=== PATIENT | female | born 1945 | race Caucasian/White ===

== ENCOUNTER 2020-06-05 09:39 | Outpatient (CLI) | payer MEDICARE, SELFPAY ==
--- NOTE | 2020-06-05 09:48 | MM_ITS ---
WS: [id number] Bilateral screening digital mammogram, 06/05/2020 Clinical Data: SCREENING Comparison: 06/04/2019, 09/01/2017, 12/14/2015, 11/28/2014, 02/18/2013, 12/30/2011, 11/02/2010, 07/20/2009, 06/29/2008, 01/26/2007. Findings: The breast parenchymal pattern shows heterogeneous density No spiculated masses or clustered calcific ations are seen. There are no secondary signs of carcinoma. MM/[id number] Impression: 1. Negative bilateral mammogram unchanged. 2. Recommend annual screening mammograms. BIRADS: 1-Negative FOLLOW UP: 1 Year Follow-up The CAD tool or die drawing checker was used.
== END 2020-06-05 09:40 | disposition home or self-care (01) ==
LOC: RADSHAW 09:45
PROVIDERS: PCP Family Medicine; Visit Provider Family Medicine
DX: Z12.31 Encounter for screening mammogram for malignant neoplasm of breast (principal)
CPT/HCPCS: 77067

== ENCOUNTER 2022-01-03 09:45 | Outpatient (CLI) | payer MEDICARE, SELFPAY ==
--- NOTE | 2022-01-03 09:52 | MM_ITS ---
WS: [id number] BILATERAL SCREENING DIGITAL MAMMOGRAM WITH CAD HISTORY: SCREENING COMPARISON: 06/05/2020, 06/04/2019, 09/01/2017 and 02/18/2013 Bilateral CC and MLO views submitted. Computer aided detection analyzed. Breast composition: The breasts are heterogeneously dense, which may obscure small masses. No suspici ous masses, microcalcifications or architectural distortion. Benign calcifications in each breast. Pa rtially obscured nodules in the anterior RIGHT breast have been present since 2012. MM/[place] [id number] IMPRESSION: BI-RADS: 2-Benign FOLLOW UP: 1 Year Follow-up
== END 2022-01-03 09:46 | disposition home or self-care (01) ==
PROVIDERS: PCP Family Medicine; Visit Provider Family Medicine
DX: Z12.31 Encounter for screening mammogram for malignant neoplasm of breast (principal)
CPT/HCPCS: 77067

== ENCOUNTER → 2022-05-29 12:54 | Outpatient (BNVA) | payer MEDICARE, SELFPAY | PROVIDERS: PCP Family Medicine; Referring Provider Dermatology; Visit Provider Podiatrist Foot & Ankle Surgery | DX: M21.611 Bunion of right foot (principal); M21.612 Bunion of left foot; M19.90 Unspecified osteoarthritis, unspecified site; M21.621 Bunionette of right foot; M21.622 Bunionette of left foot; M20.41 Other hammer toe(s) (acquired), right foot; M20.42 Other hammer toe(s) (acquired), left foot; M20.21 Hallux rigidus, right foot; M20.22 Hallux rigidus, left foot; M79.671 Pain in right foot; M79.672 Pain in left foot | CPT/HCPCS: 73630; 99204 ==

== ENCOUNTER → 2022-07-25 12:29 | Outpatient (BNVA) | payer MEDICARE, SELFPAY | PROVIDERS: PCP Family Medicine; Visit Provider Family Medicine | DX: Z00.00 Encounter for general adult medical examination without abnormal findings (principal) | CPT/HCPCS: 80053; 83036; 85025 ==

== ENCOUNTER 2022-09-02 13:53 | Outpatient (CLI) | payer MEDICARE, SELFPAY ==
--- NOTE | 2022-09-02 14:30 | XR_ITS ---
WS: [id number] SCREENING DEXA SCAN [employer] CLINICAL INFORMATION: screening COMPARISON: 2017 FINDINGS: The L1-L4 bone mineral density measures 1.187 g/cm2. This corresponds to a T score score of 0.1 and Z score of 1.9. Left femoral neck bone mineral density measures 0.841 g/cm2. This corresponds to a T score of -1.3 an d Z score of 0.5. Right femoral neck bone mineral density measures 0.821 g/cm2. This corresponds to a T score -1.5of an d Z score of 0.4. Mean femoral neck bone mineral density measures 0.831 g/cm2. This corresponds to a T score of -1.4 an d Z score of 0.4. XR/XR DEXA axial skeleton* [id number] IMPRESSION: Normal bone mineralization lumbar spine. Osteopenia femoral necks. Patient's FRAX calculated 10 year probability for major osteoporotic fracture i s 29.9 % and osteoporotic hip fracture is 19.4%. Bone mineral density lumbar spine has decreased -1.1% since 2017. Bone mineral density femoral necks has decreased -1.1% since 2017.
== END 2022-09-02 13:54 | disposition home or self-care (01) ==
LOC: RAD 13:54
PROVIDERS: PCP Family Medicine; Visit Provider Family Medicine
DX: Z13.820 Encounter for screening for osteoporosis (principal)
CPT/HCPCS: 77080

== ENCOUNTER → 2022-10-29 14:17 | Outpatient (BNVA) | payer MEDICARE, SELFPAY | PROVIDERS: PCP Family Medicine; Visit Provider Podiatrist Foot & Ankle Surgery | DX: M21.611 Bunion of right foot (principal); M21.612 Bunion of left foot; M21.621 Bunionette of right foot; M21.622 Bunionette of left foot; M20.41 Other hammer toe(s) (acquired), right foot; M20.42 Other hammer toe(s) (acquired), left foot; M20.21 Hallux rigidus, right foot; M20.22 Hallux rigidus, left foot | CPT/HCPCS: 99214 ==

== ENCOUNTER 2022-11-08 05:54 | Day surgery (SDC) | payer MEDICARE, SELFPAY ==
[2022-11-07 15:40] VITALS: BMI 24.2
[2022-11-08] VITALS (7 sets, daily range): BP systolic 111–170; BP diastolic 70–103; PULSE 73–80; RESP 10–18; TEMP 36.3–36.8; O2SAT 95–97
--- NOTE | 2022-11-08 | XR_ITS ---
WS: [id number] Right foot, C-arm fluoroscopy, 11/08/2022 Clinical Data: lapis buniectomy and osteotomy, right foot Comparison: Bilateral feet, 05/29/2022 Findings: The patient has had an osteotomy of the distal right first metatarsal with an oblique screw reducing the osteotomy. There is also an osteotomy of the right first toe proximal phalanx with a medial plate and screws. There is partial resection of the medial head of the right first metatarsal. XR/XR foot RT 2V [id number] Impression: Osteotomy of the right first metatarsal and right first toe proximal phalanx al nika with bunionectomy.
--- NOTE | 2022-11-08 06:28 | ANES.PREANE2 ---
Pre-Anesthetic Assessment Height/Weight: Height 1.62 m Weight 63.503 kg Temp Pulse Resp BP Pulse Ox O2 Del Method 98.1 F 80 18 170/103 96 11/08/22 06:13 11/08/22 06:13 11/08/22 06:13 11/08/22 06:13 11/08/22 06:13 11/08/22 06:14 Preop Diagnosis: Right bunion deformity Operation Date: 11/08/22 07:00 Proposed Procedures p Right Kevin bunionectomy and Sravan osteotomy 09016,M21.611(Right) - Go Wiley DPM s Sravan Osteotomy(Right) - Go Wiley DPM Familial anesthetic complications: None Was Beta David taken within 24 hours: N/A Was Clonidine taken within 24 hours: N/A Last intake: Intake Last Liquid Date 11/07/22 Last Liquid Time 19:00 Last Solid Date 11/07/22 Last Solid Time 19:00 Social No alcohol and No tobacco former smoker Exam alert, oriented x 3, clear to auscultation bilaterally and regular rate & rhythm Airway Mallampati: Class III Dentition: full GI Gastroesophageal Reflux Disease Anesthetic Plan ASA status: 2 Anesthesia: MAC Risk of > 500 ml blood loss (7ml/kg in children): No Medications/Allergies Home Medications Medication Instructions Recorded Confirmed Last Taken Type aspirin 81 mg tablet,delayed 81 mg PO DAILY 06/19/22 11/07/22 10/24/22 History release (Adult Low Dose Aspirin) multivitamin 1 tab PO DAILY 06/19/22 11/08/22 11/07/22 History osteobiflex as directed 06/19/22 10/29/22 11/07/22 History ibuprofen 200 mg tablet (Advil) 200 mg PO Q6H PRN Pain 09/04/22 11/07/22 11/07/22 History Allergies Allergy/AdvReac Type Severity Reaction Status Date / Time No Known Allergies Allergy Verified 10/29/22 14:22 [facility] Anesthesia Medical History No pertinent past medical history Surgical History H/O: hysterectomy History of appendectomy History of cholecystectomy History of colon resection Social History Smoking and tobacco status: former smoker History of recent travel: Yes Data Anesthesia Cardiac Studies: No Data to Display
[2022-11-08] MEDS: sodium chloride 0.9% 1,000 ML 30 ML IV (06:30)
[2022-11-08] MEDS: gabapentin 300 mg Capsule PO (06:30)
[2022-11-08] MEDS: CELEcoxib 200 mg Capsule 400 MG PO (06:30)
--- NOTE | 2022-11-08 06:34 | W.PM.OPSUD ---
Surgery/Procedure H&P Update DATE OF PROCEDURE: November 08, 2022 DATE H&P PERFORMED: 10/29/22 CHANGES TO PREVIOUS DOCUMENTATION: None PREOP DIAGNOSIS: Right bunion deformity PLANNED PROCEDURE: Operation Date: 11/08/22 07:00 Proposed Procedures p Right Kevin bunionectomy and Sravan osteotomy [id number],M21.611(Right) - Go Wiley DPM s Sravan Osteotomy(Right) - Go Wiley DPM
[2022-11-08] MEDS: ceFAZolin 2,000 MG in sodium chloride 0.9% (plus) 50 ML 100 MG IV (07:00)
--- NOTE | 2022-11-08 08:09 | P.OP_ITS ---
Operative Report Date of procedure: November 08, 2022 Pre-op diagnosis: Preop Diagnosis Right bunion deformity Post-op diagnosis: Right bunion deformity Procedure done: Right Kevin bunionectomy and Sravan osteotomy. CPT code 78665 Implants: [place] 3 mm headed screw and [place] 10 mm angled staple, 3-0 Vicryl, 4-0 Vicryl, 4-0 Monocryl Specimens removed/disposition: None Pathology: None Surgeon: Go Wiley D.P.M. Yard Operator: Shelley Estimated blood loss: 5 43 IV fluids: None Urine output: None Complications: None Brief History: Patient examined and evaluated, findings and treatment options were discussed with patient at length. She has had poor response to conservative care for her right bunion that is affecting her overall quality of life with pain on a daily basis. She would like to discuss surgical intervention. Discussed risk versus benefits of an office then possible Sravan osteotomy for right bunion deformity. Patient wishes to proceed. I reviewed at length with the patient, the risks, potential complications, benefits, alternatives, expectations, and typical outcomes associated with the surgery. The risks and potential complications were explained in detail, including but not limited to infection, wound dehiscence or soft tissue complications, bleeding and hematoma, chronic edema, neuritis or nerve damage producing numbness or chronic pain, CRPS, failure to relieve pain or worsening pain, thick / painful / unsightly scar, limited motion / stiffness, malposition, delayed union, malunion, or nonunion, fracture, reaction to implants, anesthetic complications, venous thromboembolism, and deformity recurrence. I discussed the notion of no regrets with the patient as it pertains to complications and outcomes. The patient seemed to understand the nature of the proposed care and required convalescence. They asked appropriate questions, answered to their satisfaction. They are aware no guarantees can be made as to a satisfactory outcome and they understand there may be other possible unforeseen complications or outcomes not listed here that will be treated accordingly if they arise. There were no written or implied guarantees given to the patient. They gave informed consent to proceed. Procedure: Under mild sedation the patient was brought to the operating room and remained on the gurney in supine position. A timeout was performed. Anesthesia was then administered by the anesthesia service. Local anesthesia was injected by myself consisting of 20 cc of Marcaine and a right block fashion as well as 10 cc of Exparel subcutaneously at the dorsal, medial and plantar forefoot, right. Well-padded pneumatic tourniquet was applied to the right ankle. The right lower extremity was scrubbed, prepped and draped utilizing normal aseptic technique. The right foot was exanguinated with an Esmarch bandage and tourniquet inflated to 250 mmHg. Attention was directed to the right foot where a bunion deformity is appreciated, there is decreased range of motion at the right first metatarsal phalangeal joint appreciated intraoperatively with an osseous prominence both dorsally and medially. Hallux valgus was not track bound. A linear longitudinal incision was made medial and parallel to the extensor houses longus tendon encompassing the length of the first metatarsal phalangeal joint both proximally and distally with a #15 blade through skin and subcutaneous tissue with dissection carried down deeper to the layer periosteum and joint capsule utilizing sharp and blunt technique with care taken to retract and preserve neurovascular and tendinous structures. All bleeders were ligated and cauterized as necessary. A linear capsulotomy was performed followed by removal of bony hypertrophy and exostosis at the dorsal aspect of the proximal phalanx base and of the head of the first metatarsal, the medial eminence was transected and passed from operative field from the head of the first metatarsal followed by a through and through chevron osteotomy with apex pointing distally in the head of the first metatarsal translated laterally to more anatomically correct position, temporally fixated with a wire and fixated utilizing standard AO technique with a [place] 28 3 mm headed screw with excellent bony apposition and compression noted screw orientation was dorsal proximal to plantar distal and did not while at the first metatarsal phalangeal joint with direct visitation or with intraoperative fluoroscopy on 3 view confirmation. Smooth range of motion was appreciated intraoperatively. Temporary fixation was removed and the medial eminence/remaining shelf was transected and all rough edges were smoothed. Attention was directed to the base of the medial aspect of the proximal phalanx of the right hallux where a Sravan osteotomy was performed maintaining a lateral cortical hinge and fixated with a angled 10 mm [place] 28 staple with excellent bony apposition and compression noted with without hardware violating the first metatarsal phalangeal joint this was confirmed with direct visualization as well as with intraoperative fluoroscopy in the AP, lateral and oblique views. Better range of motion was appreciated intraoperatively with approximately 45 degrees of dorsiflexion intraoperatively after having performed the bunionectomy this was significantly better than preoperative range of motion, anatomically reduced bunion deformity also appreciated. The incision was flushed with copious amounts of sterile skin solution and the joint capsule was reapproximated utilizing 3-0 Vicryl, subcutaneous tissue reapproximated 4-0 Vicryl and skin with 4-0 Monocryl reinforced with benzoin and Steri-Strips. The incision was t hen dressed with Adaptic, sterile 4 x 4's, Kerlix and Lucien wrap followed by application of a cam boot to the right lower extremity. Tourniquet was deflated at the right ankle and a prompt hyperemic response was noted to the distal digits of the right foot. Patient tolerated the procedure and anesthesia well and was transferred to the PACU with vital signs stable and vascular status intact. Following a period of postop monitoring she will be discharged home may be weightbearing as tolerated with a cam boot. Was given at home care instructions, my cell phone number as well as follow-up for postoperative care scheduled in podiatry clinic.
--- NOTE | 2022-11-08 14:39 | ANE.PACU2 ---
Inpatient post-anesthesia follow up: Airway intact: Yes Vital signs: Temperature 97.9 F Pulse Rate 74 Respiratory Rate 18 Blood Pressure 111/85 Pulse Oximetry 96 Oxygen Delivery Me thod Room Air Oxygen Flow Rate Fraction of Inspir ed Oxygen Hydration adequate: Yes Nausea and vomiting: No Pain level: 1 Mental status: Baseline
== END 2022-11-08 09:31 | disposition home or self-care (01) ==
PROVIDERS: PCP Family Medicine; Visit Provider Podiatrist Foot & Ankle Surgery
PROC: (CPT 28296; principal; 2022-11-08 07:00)
PROC: (CPT 28298; 2022-11-08 07:00)
DX: M21.611 Bunion of right foot (principal); Z87.891 Personal history of nicotine dependence
CPT/HCPCS: 28299; 73620; 76000; C1713; C9290; J0690; J1100; J2370; J2405; J2704; J3010; J3490; J7030

== ENCOUNTER → 2022-11-13 14:24 | Outpatient (BNVA) | payer MEDICARE, SELFPAY | PROVIDERS: PCP Family Medicine; Visit Provider Podiatrist Foot & Ankle Surgery | DX: Z98.890 Other specified postprocedural states (principal); M21.611 Bunion of right foot | CPT/HCPCS: 73630; 99024 ==

== ENCOUNTER → 2022-11-21 14:37 | Outpatient (BNVA) | payer MEDICARE, SELFPAY | PROVIDERS: PCP Family Medicine; Visit Provider Podiatrist Foot & Ankle Surgery | DX: Z98.890 Other specified postprocedural states (principal) | CPT/HCPCS: 73630; 99024 ==

== ENCOUNTER → 2022-12-05 13:53 | Outpatient (BNVA) | payer MEDICARE, SELFPAY | PROVIDERS: PCP Family Medicine; Visit Provider Podiatrist Foot & Ankle Surgery | DX: Z98.890 Other specified postprocedural states (principal) | CPT/HCPCS: 73630 ==

== ENCOUNTER 2022-12-05 15:49 | Outpatient (CLI) | payer MEDICARE, SELFPAY | END 2022-12-05 15:50 | disposition home or self-care (01) | LOC: SPT 15:51 | PROVIDERS: PCP Family Medicine; Visit Provider Podiatrist Foot & Ankle Surgery | DX: Z47.89 Encounter for other orthopedic aftercare (principal) | CPT/HCPCS: 97760; 99024; L3031 ==

== ENCOUNTER → 2022-12-26 14:06 | Outpatient (BNVA) | payer MEDICARE, SELFPAY | PROVIDERS: PCP Family Medicine; Visit Provider Podiatrist Foot & Ankle Surgery | DX: Z98.890 Other specified postprocedural states (principal) | CPT/HCPCS: 73630; 99024 ==

== ENCOUNTER 2023-01-09 15:17 | Outpatient (CLI) | payer MEDICARE, SELFPAY ==
--- NOTE | 2023-01-09 15:23 | MM_ITS ---
WS: [id number] BILATERAL 3D TOMOSYNTHESIS DIGITAL SCREENING MAMMOGRAPHY WITH CAD CLINICAL INFORMATION: SCREENING HISTORY: Screening mammogram. No current complaints. COMPARISON: January 03, 2022 TECHNIQUE: Bilateral CC and MLO views. FINDINGS: The breasts are composed of heterogeneous fibroglandular density tissue, which can limit the detectio n of small underlying mass lesions. No suspicious mass, asymmetry, calcifications, or architectural d istortion. No evidence of malignancy. Punctate and lucent centered calcifications. Vascular calcifica tion. MM/[place] [id number] IMPRESSION: BI-RADS: 2-Benign FOLLOW UP: 1 Year Follow-up Recommend return to annual screening mammography.
== END 2023-01-09 15:18 | disposition home or self-care (01) ==
LOC: RAD 15:21
PROVIDERS: PCP Family Medicine; Visit Provider Family Medicine
DX: Z12.31 Encounter for screening mammogram for malignant neoplasm of breast (principal)
CPT/HCPCS: 77063; 77067

== ENCOUNTER → 2023-02-27 15:12 | Outpatient (BNVA) | payer MEDICARE, SELFPAY | PROVIDERS: PCP Family Medicine; Visit Provider Podiatrist Foot & Ankle Surgery | DX: Z98.890 Other specified postprocedural states (principal) | CPT/HCPCS: 99024 ==

== ENCOUNTER → 2023-05-05 09:43 | Outpatient (BNVA) | payer MEDICARE, SELFPAY | PROVIDERS: PCP Family Medicine; Visit Provider Specialist | DX: M19.021 Primary osteoarthritis, right elbow (principal) | CPT/HCPCS: 20610; 73080; 99203; J1100; J2795; J3301 ==

== ENCOUNTER → 2023-07-30 08:06 | Outpatient (BNVA) | payer MEDICARE, SELFPAY | PROVIDERS: PCP Family Medicine; Visit Provider Family Medicine | DX: Z00.00 Encounter for general adult medical examination without abnormal findings (principal); E78.5 Hyperlipidemia, unspecified; E87.1 Hypo-osmolality and hyponatremia; Z98.890 Other specified postprocedural states; M19.021 Primary osteoarthritis, right elbow | CPT/HCPCS: 80053; 80061; 85025 ==

== ENCOUNTER → 2023-08-01 08:56 | Outpatient (BNVA) | payer MEDICARE, SELFPAY | PROVIDERS: PCP Family Medicine; Visit Provider Surgery | DX: Z12.11 Encounter for screening for malignant neoplasm of colon (principal); Z12.12 Encounter for screening for malignant neoplasm of rectum | CPT/HCPCS: 99024; 99203 ==

== ENCOUNTER → 2023-09-17 13:04 | Outpatient (BNVA) | payer MEDICARE, SELFPAY | PROVIDERS: PCP Family Medicine; Visit Provider Specialist | DX: M17.12 Unilateral primary osteoarthritis, left knee | CPT/HCPCS: 20610; 73560; 73565; 99214; J1100; J2795; J3301 ==

== ENCOUNTER → 2023-09-22 14:06 | Outpatient (BNVA) | payer MEDICARE, SELFPAY | PROVIDERS: PCP Family Medicine; Visit Provider Nurse Practitioner | DX: M17.12 Unilateral primary osteoarthritis, left knee (principal) | CPT/HCPCS: 73560; 73565; 99214 ==

== ENCOUNTER 2023-10-02 08:31 | Day surgery (SDC) | payer MEDICARE, SELFPAY ==
[2023-10-02 08:48] VITALS: BMI 22.6
[2023-10-02 08:51] VITALS: BP 141/95; PULSE 86; RESP 18; TEMP 36.4; O2SAT 97
[2023-10-02] MEDS: sodium chloride 0.9% 1,000 ML 30 ML IV (08:54)
--- NOTE | 2023-10-02 09:42 | W.PM.OPSFHP ---
Same Day Surgery H&P Indication for Procedure/HPI DATE OF PROCEDURE: October 02, 2023 CHIEF COMPLAINT/INDICATIONFOR SURGICAL PROCEDURE: need for screening colonoscopy PREOP DIAGNOSIS: need for screening colonoscopy PLANNED PROCEDURE: Operation Date: 10/02/23 09:30 Proposed Procedures p 04282 colon,Z12.11(Not Applicable) - Germain Haywood MD Medications/Allergies* Home Medications Medication Instructions Recorded Confirmed Type aspirin 81 mg tablet,delayed 81 mg PO DAILY 06/19/22 10/02/23 History release (Adult Low Dose Aspirin) multivitamin 1 tab PO DAILY 06/19/22 10/02/23 History osteobiflex 1 tab PO DAILY 06/19/22 10/02/23 History naproxen sodium 220 mg capsule 220 mg PO BID PRN Pain 08/01/23 10/02/23 History (Aleve) Allergies/Adverse Reactions Allergy/AdvReac Type Severity Reaction Status Date / Time lisinopril Allergy Mild ADR-Cough Uncoded 09/22/23 14:07 Current Medications: Generic Name Dose Route Start Last Admin Trade Name Freq PRN Reason Stop Dose Admin Sodium Chloride 1,000 mls @ 30 mls/hr 10/02/23 08:45 10/02/23 08:54 Sodium Chloride 0.9% IV 30 mls/hr .Q24H TIARRA Administration Pertinent History/Comorbid Conditions* Medical History (Updated 09/19/23 @ 19:23 by Madhavi Ibrahim MD) No pertinent past medical history Surgical History (Updated 11/08/22 @ 08:10 by Go Wiley DPM) H/O: hysterectomy History of appendectomy History of cholecystectomy History of colon resection Social History Smoking and tobacco/nicotine status: former use of tobacco/nicotine Pertinent Exam Findings alert, oriented x 3, clear to auscultation bilaterally and regular rate & rhythm Recommendations Surgery/Procedure today Coding Level of Care Code Acute Code for Chg Fwd Diagnoses
--- NOTE | 2023-10-02 09:59 | ANES.PREANE2 ---
Pre-Anesthetic Assessment Height/Weight: Height 1.63 m Weight 59.874 kg Temp Pulse Resp BP Pulse Ox O2 Del Method 97.5 F L 86 18 141/95 97 Room Air 10/02/23 08:51 10/02/23 08:51 10/02/23 08:51 10/02/23 08:51 10/02/23 08:51 10/02/23 08:51 Preop Diagnosis: need for screening colonoscopy Operation Date: 10/02/23 09:30 [place] Procedures p [id number] colon,Z12.11(Not Applicable) - Germain Haywood MD Familial anesthetic complications: none Was Beta David taken within 24 hours: N/A Was Clonidine taken within 24 hours: N/A Last intake: Intake Last Liquid Date 10/01/23 Last Liquid Time 22:00 Last Solid Date 09/30/23 Last Solid Time 19:00 Social No alcohol and No tobacco Exam alert, oriented x 3, clear to auscultation bilaterally and regular rate & rhythm Airway Submandibular: within normal limits Cervical ROM: within normal limits Mallampati: Class II Dentition: full Pulmonary None reported CV/HEM Hypertension None reported Hepatic None reported GI Gastroesophageal Reflux Disease (controlled) Metabolic None reported Musc/skel Osteoarthritis/DJD Neuropsych None reported Anesthetic Plan ASA status: 2 Anesthesia: MAC Risk of > 500 ml blood loss (7ml/kg in children): No Medications/Allergies Home Medications Medication Instructions Recorded Confirmed Last Taken Type aspirin 81 mg tablet,delayed 81 mg PO DAILY 06/19/22 10/02/23 10/24/22 History release (Adult Low Dose Aspirin) multivitamin 1 tab PO DAILY 06/19/22 10/02/23 09/30/23 History osteobiflex 1 tab PO DAILY 06/19/22 10/02/23 09/28/23 History naproxen sodium 220 mg capsule 220 mg PO BID PRN Pain 08/01/23 10/02/23 Unknown History (Aleve) amlodipine 2.5 mg tablet 2.5 mg PO DAILY #30 tabs 08/19/23 10/02/23 10/01/23 Rx meloxicam 7.5 mg tablet 7.5 mg PO DAILY #90 tabs 09/22/23 10/02/23 10/01/23 Rx Allergies Allergy/AdvReac Type Severity Reaction Status Date / Time lisinopril Allergy Mild ADR-Cough Uncoded 09/22/23 14:07 Current Medications Generic Name Dose Route Start Last Admin Trade Name Freq PRN Reason Stop Dose Admin Sodium Chloride 1,000 mls @ 30 mls/hr 10/02/23 08:45 10/02/23 08:54 Sodium Chloride 0.9% IV 30 mls/hr .Q24H TIARRA Administration PFSH Anesthesia Medical History No pertinent past medical history Surgical History H/O: hysterectomy History of appendectomy History of cholecystectomy History of colon resection Social History Smoking and tobacco/nicotine status: former use of tobacco/nicotine Data Anesthesia Cardiac Studies: No Data to Display
[2023-10-02 11:35] VITALS: BP 147/80; PULSE 78; RESP 16; TEMP 36.2; O2SAT 94
[2023-10-02 11:40] VITALS: BP 160/88; PULSE 72; RESP 16; O2SAT 92
[2023-10-02 11:50] VITALS: BP 146/93; PULSE 73; RESP 18; O2SAT 95
--- NOTE | 2023-10-02 12:57 | ANE.PACU2 ---
Inpatient post-anesthesia follow up: Airway intact: Yes Vital signs: Temperature 97.1 F Pulse Rate 73 Respiratory Rate 18 Blood Pressure 146/93 Pulse Oximetry 95 Oxygen Delivery Me thod Nasal Cannula Oxygen Flow Rate 3 Fraction of Inspir ed Oxygen Hydration adequate: Yes Nausea and vomiting: No Pain level: 2 Mental status: Baseline
== END 2023-10-02 12:15 | disposition home or self-care (01) ==
PROVIDERS: PCP Family Medicine; Visit Provider Surgery
PROC: 0DJD8ZZ Inspection of Lower Intestinal Tract, Via Natural or Artificial Opening Endoscopic (ICD-10-PCS; CPT 45378; principal; 2023-10-02 09:30)
DX: Z12.11 Encounter for screening for malignant neoplasm of colon (principal); K57.30 Diverticulosis of large intestine without perforation or abscess without bleeding; I10 Essential (primary) hypertension; K21.9 Gastro-esophageal reflux disease without esophagitis; M19.90 Unspecified osteoarthritis, unspecified site; Z79.82 Long term (current) use of aspirin; Z87.891 Personal history of nicotine dependence
CPT/HCPCS: G0121; J2704; J7030

== ENCOUNTER → 2023-12-29 10:49 | Outpatient (BNVA) | payer MEDICARE, SELFPAY | PROVIDERS: PCP Family Medicine; Visit Provider Nurse Practitioner Family | DX: L57.0 Actinic keratosis (principal); L57.8 Other skin changes due to chronic exposure to nonionizing radiation; L81.4 Other melanin hyperpigmentation; D22.4 Melanocytic nevi of scalp and neck | CPT/HCPCS: 17000; 99203 ==

== ENCOUNTER → 2024-02-16 07:47 | Outpatient (BNVA) | payer MEDICARE, SELFPAY | PROVIDERS: PCP Family Medicine; Visit Provider Specialist | DX: M17.12 Unilateral primary osteoarthritis, left knee (principal) | CPT/HCPCS: 20610; J2795; J3301 ==

== ENCOUNTER → 2024-02-19 07:52 | Outpatient (BNVA) | payer MEDICARE, SELFPAY | PROVIDERS: PCP Family Medicine; Visit Provider Otolaryngology | DX: R49.0 Dysphonia (principal); H93.13 Tinnitus, bilateral | CPT/HCPCS: 31575; 99205 ==

== ENCOUNTER → 2024-05-07 07:53 | Outpatient (BNVA) | payer MEDICARE, SELFPAY | PROVIDERS: PCP Family Medicine; Visit Provider Specialist | DX: M17.12 Unilateral primary osteoarthritis, left knee; Z71.89 Other specified counseling | CPT/HCPCS: 20610; J7318 ==

== ENCOUNTER → 2024-05-19 08:10 | Outpatient (BNVA) | payer MEDICARE, SELFPAY | PROVIDERS: PCP Family Medicine; Visit Provider Specialist | DX: M25.521 Pain in right elbow (principal); M19.021 Primary osteoarthritis, right elbow | CPT/HCPCS: 20605; 73080; 99213; J1100; J2795; J3301 ==

== ENCOUNTER → 2024-08-13 11:05 | Outpatient (BNVA) | payer MEDICARE, SELFPAY | PROVIDERS: PCP Family Medicine; Visit Provider Specialist | DX: M17.12 Unilateral primary osteoarthritis, left knee (principal); Z71.89 Other specified counseling | CPT/HCPCS: 20610; J1100; J2795; J3301 ==

== ENCOUNTER 2024-10-19 14:46 | Outpatient (RCR) | payer MEDICARE, SELFPAY | END 2024-10-23 23:59 | disposition home or self-care (01) | LOC: SPT 14:46 | PROVIDERS: Visit Provider Student in an Organized Health Care Education/Training Program | DX: Z47.1 Aftercare following joint replacement surgery (principal); Z96.652 Presence of left artificial knee joint | CPT/HCPCS: 97161 ==

== ENCOUNTER 2024-10-26 12:27 | Outpatient (RCR) | payer MEDICARE, SELFPAY | END 2024-11-23 23:59 | disposition home or self-care (01) | LOC: SPT 12:27 | PROVIDERS: Visit Provider Student in an Organized Health Care Education/Training Program | DX: Z47.1 Aftercare following joint replacement surgery (principal); Z96.652 Presence of left artificial knee joint | CPT/HCPCS: 97110 ==

== ENCOUNTER 2024-11-24 06:00 | Outpatient (RCR) | payer MEDICARE, SELFPAY | END 2024-12-24 23:59 | disposition home or self-care (01) | LOC: SPT 06:00 | PROVIDERS: Visit Provider Student in an Organized Health Care Education/Training Program | DX: Z47.1 Aftercare following joint replacement surgery (principal); Z96.652 Presence of left artificial knee joint | CPT/HCPCS: 97110 ==

== ENCOUNTER → 2024-12-14 10:10 | Outpatient (BNVA) | payer MEDICARE, SELFPAY | PROVIDERS: Visit Provider Nurse Practitioner Family | DX: L57.8 Other skin changes due to chronic exposure to nonionizing radiation (principal); L81.4 Other melanin hyperpigmentation; D22.4 Melanocytic nevi of scalp and neck; L57.0 Actinic keratosis | CPT/HCPCS: 17000; 99213 ==

== ENCOUNTER 2024-12-25 06:00 | Outpatient (RCR) | payer MEDICARE, SELFPAY | END 2025-01-17 08:04 | disposition home or self-care (01) | LOC: SPT 06:00 | PROVIDERS: Visit Provider Student in an Organized Health Care Education/Training Program | DX: Z47.1 Aftercare following joint replacement surgery (principal); Z96.652 Presence of left artificial knee joint | CPT/HCPCS: 97110 ==